=== PATIENT | male | born 1935 | race Caucasian/White ===

== ENCOUNTER 2017-06-18 14:04 | Inpatient (IN) | payer OTHER ==
[~2017-06-18] VITALS: Ht 172.7 cm; Wt 93.2 kg
--- NOTE | ~2017-06-18 | WRIGHTHP ---
[place], [place] PATIENT HISTORY AND PHYSICAL EXAM NAME: SANA RIVERA UNIT #: [id number] ROOM: 316 DOCTOR: CARLOS JEFFREY MD BIRTHDATE: [birth year] DOS: 06/19/2017 CHIEF COMPLAINT: "That other doctor came yesterday. Boy, there is a lot of you here." SUMMARY OF THE VISIT: The patient was interviewed in the dining area. HISTORY OF PRESENT ILLNESS: This is an 82-year-old white male who is a resident of [facility] in [place], [place]. The patient apparently on the day prior to his admission had become increasingly agitated. He was sexually inappropriate with staff and other residents and attempts to redirect were met with him becoming violent. He was given a p.r.n. of Haldol and went to sleep. Upon arising on the day of admission, he once again escalated and became physically aggressive toward staff and others. He attempted to elope from the facility on multiple times and when attempts were made to again redirect, he escalated to violence. He is admitted now to rule out organic factors and to stabilize on medication. PAST MEDICAL HISTORY: Remarkable for Alzheimer's dementia, benign prostatic hyperplasia, CVA, GERD, pulmonary embolus, hyperlipidemia, microcytic anemia, diabetes, urinary retention, vitamin B12 deficiency and vitamin D deficiency. MENTAL STATUS: The patient is alert and oriented to person, place, but not time. Mood does seem to be rather down and depressed with some anxious overtones. He also exhibits some mild mood lability. There are no voiced delusions or paranoia. Short-term memory is exceedingly poor. DIAGNOSIS: Major depression, recurrent, severe. PLAN: I will go ahead and discontinue his donepezil in lieu of Exelon patch 4.6 mg a day and rapidly titrate this upward to its maximum dose of 13.3. I have started him on Celexa 10 mg a day to combat the depression, it will also decrease libido and has been shown to decrease aggression. We will engage him in individual and nguyen milieu therapy, returning back to [place] when stable. [place], [place] PATIENT HISTORY AND PHYSICAL EXAM NAME: SANA RIVERA UNIT #: [id number] ROOM: 316 DOCTOR: CARLOS JEFFREY MD BIRTHDATE: [birth year] CARLOS JEFFREY MD CM:HISPHYS:PATIENT HISTORY AND PHYSICAL EXAMINATION 6 CARLOS JEFFREY MD 06/19/17 0937 interface
--- NOTE | ~2017-06-18 | PR ---
[place], [place] PROGRESS NOTE NAME: SANA RIVERA [facility] #: [id number] UNIT #: [id number] ROOM: 315 DOCTOR: Aldair JORGE,JAVIER BIRTHDATE: [birth year] DOS: 06/25/2017 PSYCHIATRIC PROGRESS NOTE SUBJECTIVE: The patient seen and spoke with the staff. Per staff, the patient is doing very well, very pleasantly confused, taking his medications and did not have any side effect from the medication; however, he was agitated earlier in the day. The patient was pleasant, cooperative. He looks bright and happy. He was in the day area. He said that he is doing fine. He denied any side effect from the medication. Denied being depressed or sad. He is not aware of his surrounding, where he is and why he is in the hospital. MENTAL STATUS EXAMINATION: The patient was pleasant, cooperative. He was alert, but not oriented to date and month and year. Described his mood as "fine." Affect, mood congruent. Thought process is with confabulation. He denies auditory or visual hallucination. No delusion or paranoia noted. He denied suicidal ideation, intent or plan. He also denied homicidal ideation, intent or plan. Insight and judgment impaired. ASSESSMENT: 1. Alzheimer dementia with behavioral disturbances 2. Alzheimer dementia with depression. PLAN: 1. Continue current medication and care. 2. Continue redirection. 3. Supportive care. JAVIER JORGE MD CM:HUGO 25 6 Aldair JORGE 06/26/17206 interface
--- NOTE | ~2017-06-18 | PR ---
[place], [place] PROGRESS NOTE NAME: SANA RIVERA [facility] #: [id number] UNIT #: [id number] ROOM: 316 DOCTOR: Aldair JORGE,JAVIER BIRTHDATE: [birth year] DOS: 06/22/2017 PSYCHIATRIC PROGRESS NOTE. SUBJECTIVE: The patient seen and I spoke with the staff. Per staff, the patient is doing better, taking his medication regularly. No behavioral problems or issues. No inappropriate behavior. The patient was seen in the dining area. He reports doing well. He said that he is taking his medication regularly and did not have any side effect. He reports good sleep and appetite. He was not able to recall the behavior actually that brought him here. MENTAL STATUS EXAMINATION: The patient was pleasant, cooperative, described his mood as "okay." Affect, mood congruent. Thought processes with confabulation. He denied auditory or visual hallucination. No delusion or paranoia noted. He denied any suicidal ideation, intent or plan. He also denied any homicidal ideation, intent or plan. Insight and judgment impaired. ASSESSMENT: Alzheimer's dementia with behavioral disturbances. PLAN: 1. Continue current medications again. 2. Continue redirection. 3. Encourage activity in groups. JAVIER JORGE MD CM:HUGO 21 [phone] Aldair JORGE 06/22/17 235 interface
--- NOTE | ~2017-06-18 | PR ---
[place], [place] [id number] #: [id number] ROOM: 315 DOCTOR: Aldair JORGE,JAVIER BIRTHDATE: [birth year] DOS: 06/29/2017 SUBJECTIVE: The patient seen and spoke with the staff. Per staff, the patient is doing well. No behavioral problems or issues. Medication compliant. Good sleep and appetite. The patient was in his room. He was having difficulty getting up. He got up eventually. He reports doing well. He looks bright and happy. Did not express any problems or concerns. MENTAL STATUS EXAMINATION: The patient was pleasant, cooperative. Described her mood as "good." Affect, mood congruent. Thought processes with confabulation. He denied auditory or visual hallucination. No delusion or paranoia noted. Denied suicidal ideation, intent or plan. He also denied homicidal ideation, intent or plan. ASSESSMENT: Alzheimer dementia with behavioral disturbances. PLAN: 1. Continue current medication and care. 2. Continue redirection. 3. Discharge planning. JAVIER JORGE MD CM:HUGO [id number] Aldair JORGE 06/29/17 1331 interface
--- NOTE | ~2017-06-18 | PR ---
[place], [place] PROGRESS NOTE [id number] #: [id number] ROOM: 315 DOCTOR: Aldair JORGE,JAVIER BIRTHDATE: [birth year] DOS: 06/30/2017 PSYCHIATRIC PROGRESS NOTE SUBJECTIVE: The patient seen and spoke with the staff. Per staff, the patient is doing well. No behavioral problems or issues. Medication compliant. Slept well last night. Easily redirectable. The patient was pleasant, cooperative. He was in the day area, looks pleasant and happy. No behavioral problem, not in any distress. Reports doing good. He denied any side effect from the medication. MENTAL STATUS EXAMINATION: The patient was pleasant, cooperative. He was alert, but not oriented to date, month, and year. He described his mood as "okay." Affect, mood congruent. He denied any auditory or visual hallucination. No delusion or paranoia noted. He denied suicidal ideation, intent or plan. He also denied homicidal ideation, intent or plan. Insight and judgment impaired. ASSESSMENT: 1. Alzheimer dementia with behavioral disturbances. 2. Dementia with depression. PLAN: 1. Continue current medications and care. 2. Continue redirection. 3. Discharge planning. JAVIER JORGE MD CM:PNTRANS [phone] Aldair JORGE 07/01/171839 interface
--- NOTE | ~2017-06-18 | PR ---
[place], [place] PROGRESS NOTE [id number] UNIT #: [id number] ROOM: 316 DOCTOR: Aldair JORGE,JAVIER BIRTHDATE: [birth year] DOS: 06/24/2017 SUBJECTIVE: The patient seen and I spoke with the staff. Per staff, he is doing good. He did not receive any p.r.n. medication last night, slept well. Easily redirectable. No overt behavioral problems or issues. The patient was pleasant, cooperative. He reports doing okay. He said that he is coming out from his room soon. He is looking forward to go for the breakfast. He denied being depressed or sad. He denied any side effect from the medication also. MENTAL STATUS EXAMINATION: The patient was pleasant and cooperative. Described his mood as "good." Affect, mood congruent. Thought processes with confabulation. He denied auditory or visual hallucination. No delusion or paranoia noted. He denied suicidal ideation, intent or plan. He also denied homicidal ideation, intent or plan. Insight and judgment impaired. ASSESSMENT: 1. Alzheimer's dementia with behavioral disturbances. 2. Alzheimer's dementia with depression. PLAN: 1. Continue current medication and care. 2. Continue redirection. 3. Supportive care. JAVIER JORGE MD CM:HUGO 04 Aldair JORGE 06/25/17Staci interface
--- NOTE | ~2017-06-18 | DS ---
[place], [place] DISCHARGE SUMMARY NAME: SANA RIVERA [facility] #: [id number] UNIT #: [id number] ROOM: 315 DOCTOR: Aldair JORGE,STEPHONBRIAN BIRTHDATE: [birth year] DOS: 07/01/2017 HISTORY OF PRESENT ILLNESS: This is an 82-year-old white male who is a resident of [facility] in [place], [place]. The patient apparently on the day prior to his admission had become increasingly agitated. He was sexually inappropriate with staff and other residents and attempts to redirect were met with him becoming violent. He was given a p.r.n. of Haldol and went to sleep. Upon arising on the day of admission, he once again escalated and became physically aggressive toward staff and others. He attempted to elope from the facility on multiple times and when attempts were made to again redirect, he escalated to violence. He is admitted now to rule out organic factors and to stabilize on medication. PAST MEDICAL HISTORY: Remarkable for Alzheimer's dementia, benign prostatic hyperplasia, CVA, GERD, pulmonary embolus, hyperlipidemia, microcytic anemia, diabetes, urinary retention, vitamin B12 deficiency and vitamin D deficiency. HOSPITAL COURSE: The patient got admitted for stabilization. He was started on Celexa as well as medication for dementia, which is Exelon and also he was getting Namenda. The patient tolerated that medication well. He continued to have some behavioral problems in the unit during his stay. We started him on Depakote, which he tolerated well with significant improvement of his mood and symptoms. During his stay, he was seen by the treatment team regularly. Continued redirection was provided to the patient. He was also seen by the medical team during his stay. During the next couple of days, the patient improved. He was sleeping well. His appetite was good. There were no behavioral problems or issues. He was easily redirectable. The treatment team felt that the patient got maximum benefit out of this acute hospitalization and can be discharged back to the long term on 07/01/2017. MENTAL STATUS EXAMINATION ON DISCHARGE: The patient was pleasant and cooperative. He was alert, but not oriented to date and month and year. Speech was normal volume and tone. He described his mood as "good." Affect, mood congruent. Thought processes with confabulation. He denied auditory or visual hallucination. No delusion or paranoia noted. He denied suicidal ideation, intent or plan. He also denied homicidal ideation, intent or plan. Insight and judgment impaired. DISCHARGE MEDICATION: Include: 1. Celexa 20 mg in the morning. 2. Depakote 250 mg twice a day. 3. Exelon patch every day. 4. Namenda 10 mg twice a day. INSTRUCTIONS AND FOLLOWUP APPOINTMENT: 1. The patient was advised to take his medication regularly. 2. The patient will be followed by a psychiatrist at the facility. [place], [place] DISCHARGE SUMMARY NAME: SANA RIVERA UNIT #: [id number] ROOM: [facility] DOCTOR: Aldair JORGE MAHBOOB BIRTHDATE: [birth year] JAVIER JORGE MD CM:BENY [id number] Aldair JORGE 07/02/17 0540 interface
--- NOTE | ~2017-06-18 | PR ---
[place], [place] PROGRESS NOTE [id number] #: [id number] ROOM: 316 DOCTOR: Aldair JORGE,JAVIER BIRTHDATE: [birth year] DOS: 06/23/2017 The patient seen and spoke with the staff. Per staff, the patient got Ativan p.r.n. yesterday. He was agitated, took his medication. The patient was pleasant, cooperative. He was in the day area. He said that he is doing fine. Did not express any problems or concerns. He is not aware of his surrounding. He totally forgot that he was agitated earlier. He did not express any concern. MENTAL STATUS EXAMINATION: The patient was pleasant, cooperative. Described his mood as "fine." Affect, mood congruent. Thought process is with confabulation. Denied auditory or visual hallucination. No delusion or paranoia noted. He denied suicidal ideation, intent or plan. He also denied homicidal ideation, intent or plan. Insight and judgment impaired. ASSESSMENT: 1. Alzheimer dementia with behavioral disturbances. 2. Alzheimer dementia with depression. PLAN: 1. Continue current medication and care. 2. Continue redirection. 3. Encourage activity and groups. JAVIER JORGE MD CM:PNTRANS [phone] Aldair JORGE 06/24/17 0305 interface
--- NOTE | ~2017-06-18 | EKG ---
[place], [place] ELECTROCARDIOGRAM REPORT NAME: SANA RIVERA UNIT #: [id number] ROOM: [facility] DOCTOR: LUIS ENRIQUE CORNEJO,SHAHEED BIRTHDATE: [birth year] DOS: 06/18/2017 TIME: 1422 hours. Sinus tachycardia at 111 beats per minute with unifocal PVCs. Minimal ST segment depression in V3-V6 with T wave abnormality is noted and ____ ischemia. Inverted T waves in the inferior leads. An abnormal ECG. No previous tracing is available for comparison. SHAHEED DUDLEY MD CM:EKGRPT:ELECTROCARDIOGRAM REPORT 30 51 SHAHEED DUDLEY MD
--- NOTE | ~2017-06-18 | PR ---
[place], [place] [facility]GRESS [id number] #: [id number] ROOM: 315 DOCTOR: Aldair JORGE,JAVIER BIRTHDATE: [birth year] DOS: 06/28/2017 SUBJECTIVE: The patient seen and spoke with the staff. Per staff, the patient is doing well. No behavioral problems or issues. Medication compliant. Easily redirectable. The patient was pleasant, cooperative. He was in the day area. He reports doing "good." He reports good sleep and appetite. Denied depressed mood or hopelessness. Denied any other neurovegetative signs or symptoms of depression. He was not in any kind of distress. MENTAL STATUS EXAMINATION: The patient was pleasant, cooperative. He described his mood as "good." Affect, mood congruent. Thought process is with confabulation. He denied auditory or visual hallucination. No delusion or paranoia noted. He denied suicidal ideation, intent or plan. He also denies homicidal ideation, intent or plan. ASSESSMENT: Alzheimer dementia with behavioral disturbances. PLAN: 1. Continue current medication and care. 2. Continue redirection. 3. Discharge planning. JAVIER JORGE MD CM:HUGO [phone] Aldair JORGE 06/29/17 1303 interface
--- NOTE | ~2017-06-18 | PR ---
[place], [place] PROGRESS NOTE NAME: [id number] UN[facility] #: [id number] ROOM: 315 DOCTOR: Aldair JORGE,JAVIER BIRTHDATE: [birth year] DOS: 06/27/2017 SUBJECTIVE: The patient seen and spoke with the staff. Per staff, the patient is doing better, little bit irritated earlier, but easily redirectable. Med compliant. No behavioral problems or issues. The patient was pleasant, cooperative. He was walking on the hallway, planning to go to the day area. He looks bright and happy. Reports doing well and not in any distress. Denied any side effect from the medication. ASSESSMENT: 1. Alzheimer dementia with behavioral disturbances. 2. Dementia with depression. PLAN: 1. Continue current medication and care. 2. Continue redirection. 3. Discharge planning. JAVIER JORGE MD CM:HUGO [phone] Aldair JORGE 06/28/17 0120 interface
--- NOTE | ~2017-06-18 | PR ---
[place], [place] PROGRESS NOTE NAME: SANA RIVERA UNIT #: [id number] ROOM: 316 DOCTOR: CARLOS JEFFREY MD BIRTHDATE: [birth year] DOS: 06/20/2017 CHIEF COMPLAINT: "Good morning. Breakfast was good." SUMMARY OF THE VISIT: The patient was interviewed as he sat in the dining area. He had completed his breakfast and was sitting with peers watching television. He voiced no complaints, reporting that he is feeling well. He is still confused, but there is no agitation or aggression. He is tolerating the current medication regimen well. MENTAL STATUS: He is alert and oriented to self, possibly place, not time. Mood does seem to be fairly euthymic. Affect is appropriate. There is no voiced aric or hypomania, auditory or visual hallucinations, delusions or paranoia. Short-term memory remains poor. PLAN: I will increase Exelon patch from 4.6 to 9.5 mg daily, engage in individual and nguyen milieu activity with the ultimate plan to return to the least restrictive environment when psychiatrically stable. CARLOS JEFRFEY MD CM:PNTRANS 3 CARLOS JEFFREY MD 06/20/17903 interface
--- NOTE | ~2017-06-18 | PR ---
[place], [place] [facility]GRESS [id number] #: [id number] ROOM: 315 DOCTOR: Aldair JORGE,JAVIER BIRTHDATE: [birth year] DOS: 06/26/2017 PSYCHIATRIC PROGRESS NOTE SUBJECTIVE: The patient seen and spoke with the staff. Per staff, the patient was doing well except for some rant about races because his roommate was an -[place], so the room needs to be changed and after that he slept well last night. The patient was pleasant, cooperative. He was in the day area. He said that "everything is good." He is taking his medication regularly and did not have any side effect. MENTAL STATUS EXAMINATION: The patient was pleasant, cooperative. Described his mood as "good." Affect, mood congruent. Thought processes with confabulation. He denied auditory or visual hallucination. No delusion or paranoia noted. He denied suicidal ideation, intent or plan. He also denied homicidal ideation, intent or plan. Insight and judgment impaired. ASSESSMENT: Alzheimer's dementia with behavioral disturbances. PLAN: 1. Continue current medication and care. 2. Continue redirection. 3. Supportive care. JAVIER JORGE MD CM:PNTRANS [phone] Aldair JORGE 06/26/17 1024 interface
[2017-06-18 14:05] VITALS: BP 130/85
[2017-06-18 14:29] LABS: BASO % 0.3 % (0.0-1.0); EOS # 0.1 10*3/uL (0.0-0.4); EOS % 1.1 % (1.0-4.0); HEMATOCRIT 34.6 % (42.0-52.0); HEMOGLOBIN 11.4 g/dl (14.0-18.0); LYMPH # 1.5 10*3/uL (1.3-4.4); LYMPH % 18.5 % (27.0-41.0); MEAN CORPUSCULAR HGB 32.9 pg (27.0-31.0); MEAN CORPUSCULAR HGB CONC 32.9 g/dl (33.0-37.0); MEAN PLATELET VOLUME 8.8 fl (9.6-12.3); MONO # 0.7 10*3/uL (0.1-1.0); MONO % 8.3 % (3.0-9.0); NEUT # 5.7 10*3/uL (2.3-7.9); NEUT % 71.3 % (47.0-73.0); PLATELET COUNT AUTOMATED 176 10*3/uL (130-400); RED BLOOD COUNT 3.46 10*6/uL (4.50-5.90); RED CELL DISTRI WIDTH 14.1 % (0-14.5)
[2017-06-18 14:43] LABS: ALBUMIN 3.1 gm/dl (3.1-4.5); ALKALINE PHOSPHATASE 75 U/L (45-117); BILIRUBIN, TOTAL 0.9 mg/dl (0.2-1.0); BUN 23 mg/dl (7-24); CARBON DIOXIDE 27 mmol/L (21-32); CHLORIDE 103 mmol/L (98-107); EST GLOM FILT AFRICAN AMERICAN > 60 ml/min; GLUCOSE 168 mg/dL (65-99); POTASSIUM 4.5 mmol/L (3.5-5.1); SGOT/AST 19 IU/L (3-35); SGPT/ALT 22 U/L (12-78); SODIUM 138 mmol/L (136-145); TOTAL PROTEIN 6.8 gm/dL (6.4-8.2)
[2017-06-18 16:19] LABS: BILIRUBIN NEGATIVE (NEGATIVE); BLOOD 3+ (NEGATIVE); CLARITY CLOUDY (CLEAR); COLOR YELLOW (YELLOW); GLUCOSE NEGATIVE (NEGATIVE); KETONE NEGATIVE (NEGATIVE); LEUKO ESTERASE 3+ (NEGATIVE); NITRITE NEGATIVE (NEGATIVE); PROTEIN 1+ (NEGATIVE); UROBILINOGEN 0.2 E.U./dl (0.2-1.0)
[2017-06-18 16:30] LABS: URINE REFLEX COMMENT YES (NO); WBC TNTC wbc/hpf (0-5)
[2017-06-18 16:35] LABS: URINE AMPHETAMINES < 1000 (1000ng/ml); URINE BARBITURATES < 200 (200ng/ml); URINE COCAINE < 300 (300ng/ml)
[2017-06-18 18:58] VITALS: BP 102/65
[2017-06-18 20:14] VITALS: BP 118/90
[2017-06-18 20:32] VITALS: BP 118/90
[2017-06-18] MEDS ORDERED: MULTI VITAMINS1 TAB PO (21:10)
[2017-06-18] MEDS ORDERED: OMEGA-3 1,0501 EACH PO (21:12)
[2017-06-18] MEDS ORDERED: OMEPRAZOLE D/R20 MG PO (21:13)
[2017-06-18] MEDS ORDERED: PLAVIX75 M1 PO (21:15)
[2017-06-18] MEDS ORDERED: PROSCAR5 M1 PO (21:15)
[2017-06-18] MEDS ORDERED: TAMSULOSIN HCL0.4 MG PO (21:17)
[2017-06-18] MEDS ORDERED: GLYCOTROL CAPS1 EACH PO (21:18)
[2017-06-18] MEDS ORDERED: VITAMIN D-32000 UNI1 PO (21:19)
[2017-06-18] MEDS ORDERED: ELIQUIS2.5 M1 PO (21:20)
[2017-06-18] MEDS ORDERED: LEADER ASPIRIN81 MG PO (21:21)
[2017-06-18] MEDS ORDERED: LIPITOR40 MG PO (21:22)
[2017-06-18] MEDS ORDERED: ATIVAN0.5 MG PO (21:22)
[2017-06-18] MEDS ORDERED: FEROSUL325 MG PO (21:23)
[2017-06-18] MEDS ORDERED: GLIPIZIDE XL5 M1 PO (21:24)
[2017-06-18] MEDS ORDERED: GLUCOPHAGE500 M1 PO (21:25)
[2017-06-18] MEDS ORDERED: NAMENDA1 TAB PO (21:26)
[2017-06-18 22:08] VITALS: BP 118/90
[2017-06-19 07:30] LABS: HEMOGLOBIN A1c 7.8 % (4.8-5.6)
[2017-06-19 07:48] LABS: CHOLESTEROL 140 mg/dL (<200); HDL CHOLESTEROL 49 mg/dl (40-60); LDL CHOLESTEROL 68 mg/dL (9-159); TRIGLYCERIDES 116 mg/dl (<150); VLDL CHOLESTEROL 23 mg/dL (6-40)
[2017-06-19 08:20] VITALS: BP 113/62
[2017-06-19 20:00] VITALS: BP 110/60
[2017-06-20 08:00] VITALS: BP 108/58
[2017-06-20 20:07] VITALS: BP 136/76
[2017-06-21 08:18] VITALS: BP 108/57
[2017-06-21 20:09] VITALS: BP 110/62
[2017-06-22 08:07] VITALS: BP 110/58
[2017-06-22 20:15] VITALS: BP 118/68
[2017-06-23 08:18] VITALS: BP 102/63
[2017-06-23 20:00] VITALS: BP 105/64
[2017-06-24 08:05] VITALS: BP 108/62
[2017-06-24 20:11] VITALS: BP 101/52
[2017-06-25 07:54] VITALS: BP 109/72
[2017-06-25 20:00] VITALS: BP 110/60
[2017-06-26 08:24] VITALS: BP 103/62
[2017-06-26 19:53] VITALS: BP 109/63
[2017-06-27 08:42] VITALS: BP 110/78
[2017-06-27 20:28] VITALS: BP 92/72
[2017-06-28 08:00] VITALS: BP 114/71
[2017-06-28 10:41] VITALS: BP 118/81
[2017-06-28 20:14] VITALS: BP 117/61
[2017-06-29 08:07] VITALS: BP 104/62
[2017-06-29 08:32] VITALS: BP 118/60
[2017-06-29 19:51] VITALS: BP 103/59
[2017-06-30 08:54] VITALS: BP 114/55
[2017-06-30] MEDS ORDERED: MEMANTINE HCL10 MG PO (19:05)
[2017-06-30] MEDS ORDERED: CITALOPRAM HYDR20 MG PO (19:05)
[2017-06-30] MEDS ORDERED: RIVASTIGMINE1 EAC1 T (19:05)
[2017-06-30] MEDS ORDERED: DIVALPROEX SOD125 M1 PO (19:05)
[2017-06-30 20:13] VITALS: BP 110/80
[2017-07-01 07:56] VITALS: BP 121/63
== END 2017-07-01 18:17 | disposition home or self-care (01) | DRG 57 ==
LOC: ED 14:04 → 3N 17:22
PROVIDERS: Nurse Practitioner Family; Psychiatry & Neurology Psychiatry
DX: G30.8 Other Alzheimer's disease (principal); F02.81 Dementia in other diseases classified elsewhere, unspecified severity, with behavioral disturbance; F33.2 Major depressive disorder, recurrent severe without psychotic features; N39.0 Urinary tract infection, site not specified; R31.9 Hematuria, unspecified; D53.9 Nutritional anemia, unspecified; E11.9 Type 2 diabetes mellitus without complications; E53.8 Deficiency of other specified B group vitamins; F23 Brief psychotic disorder; F29 Unspecified psychosis not due to a substance or known physiological condition; N40.0 Benign prostatic hyperplasia without lower urinary tract symptoms; R33.9 Retention of urine, unspecified; E55.9 Vitamin D deficiency, unspecified; K21.9 Gastro-esophageal reflux disease without esophagitis; E78.5 Hyperlipidemia, unspecified; Z86.711 Personal history of pulmonary embolism; Z86.73 Personal history of transient ischemic attack (TIA), and cerebral infarction without residual deficits; Z91.81 History of falling